=== PATIENT | female | born 1930 | race Caucasian/White ===

== ENCOUNTER 2016-06-20 18:06 | Emergency (ER) | payer OTHER ==
--- NOTE | 2016-06-20 18:35 | PROVIDER DOCUMENTATION ---
HPI-Female /OB/Breast - General Chief Complaint: UTI Symptoms Stated Complaint: FEMALE /WOUND RE-CHECK Time Seen by Provider: 06/20/16 18:29 Source: reports: patient, family Allergies/Adverse Reactions: Patient Allergies Allergy/AdvReac Type Severity Reaction Status Date / Time morphine Allergy NAUSEA/VOMI Verified 06/20/16 18:20 TING Home Medications: Home Medication List Medication Instructions Recorded Confirmed Last Taken Type Ciprofloxacin HCl [Cipro] 500 mg PO BID #14 tablet 06/20/16 Unknown Rx Metronidazole 500 mg PO BID #20 tablet 06/20/16 Unknown Rx - History of Present Illness-Female /OB Nature of Presenting Problem: 85 y/o WF presents to ED with c/o frequent urination, dark/malodorous urine, decreased urine x 2 days. Family states that pt has late stage dementia and has been urinating frequently, but has decreased over last 1-[address] Marti was supposed to perform a vaginal exam and catheterize her, but has not seen as outpatient to perform. Family states that they attempted to examine her urethra and noted that they couldn't see it; concerned that it may have "mucus plug" or closed up. Wants pt to be catheterized to go home. Pt is in diapers, but has not gone on her own x 3 weeks. Also states wound on LUE that they want checked; has been present for 2 weeks. Review of Systems - Adult - REVIEW OF SYSTEMS - ADULT ROS:: ROS per family Constitutional: reports: no symptoms reported. denies: chills, fever Eyes: reports: no symptoms reported Ears, Nose, Mouth & Throat: reports: no symptoms reported Cardiovascular: reports: no symptoms reported. denies: chest pain, palpitations Respiratory: reports: no symptoms reported. denies: cough, shortness of breath Gastrointestinal: reports: constipation (frequent impactions). denies: abdominal pain, diarrhea, nausea, vomiting Genitourinary: reports: see HPI. denies: discharge, frequent UTI's, hematuria Musculoskeletal: reports: no symptoms reported. denies: joint pain, joint swelling Integumentary: reports: no symptoms reported. denies: nail changes, rash Neurological: reports: see HPI, other. denies: numbness, paresthesia Psychiatric: reports: no symptoms reported Endocrine: reports: no symptoms reported. denies: cold intolerance, heat intolerance Hematologic/Lymphatic: reports: no symptoms reported. denies: easy bruising, prolonged bleeding Allergic/Immunologic: reports: no symptoms reported All Other Systems: Reviewed and Negative Past History - Adult - PAST MEDICAL HISTORY-ADULT Review of Records: reports: Nursing Assessment Review, Medications Reviewed Neurological: reports: dementia - PRIOR SURGERIES/PROCEDURES Surgical/Procedure History: reports: hysterectomy - SOCIAL HISTORY Smoking: denies Alcohol Use Frequency: never Living Situation: family Physical Exam-General - PHYSICAL EXAM-ADULT Initial Vital Signs Reviewed: Yes - CONSTITUTIONAL General Appearance: slow to respond - EYES Eyes: pink conjunctivae - HEAD, EARS, NOSE, MOUTH & THROAT HENMT: normocephalic/atraumatic - SKIN Integumentary: normal color, normal turgor, warm/dry, laceration(s) (healing lac approx. 2.5 cm to L wrist; no active bleeding or infection) - PSYCHIATRIC Psych/Mental Status: other Progress - PLAN OF CARE/RESULTS Progress/Plan/Lab Results: Laboratory Tests 06/20/16 20:40 Urine Source CATH Urine Color YELLOW Urine Clarity VERY CLOUDY A Urine pH 8.0 Ur Specific [place] 1.010 Urine Protein TRACE A Urine Ketones NEGATIVE Urine Blood 3+ A Urine Nitrite POSITIVE A Urine Bilirubin NEGATIVE Urine Urobilinogen NORMAL Urine Microscopic RBC 10-20 A Urine WBC 1+ A Urine Microscopic WBC 10-20 A Ur Epithelial Cells <10 Urine Bacteria 4+ Urine Glucose NEGATIVE Orders Category Date Time Status [place] [Home with Leg Bag] DIRECTED Care 06/20/16 18:56 Active FLAT/UPRIGHT ABD/1 VIEW CHEST [RAD] Stat Exams 06/20/16 18:[address] W/POSS RFLX CULT [URINALYSIS] Stat Lab 06/20/16 20:40 Completed URINE CULTURE [RM] Routine Lab 06/20/16 21:11 Results Ciprofloxacin [Cipro] Med 06/20/16 21:14 Discontinued 500 mg PO NOW ONE Metronidazole [Flagyl] Med 06/20/16 21:23 Discontinued 500 mg .ROUTE .STK-MED ONE Metronidazole [Flagyl] Med 06/20/16 21:14 Discontinued 500 mg PO NOW ONE Vital Signs Temp Pulse Resp BP Pulse Ox 06/20/16 21:29 79 18 113/70 97 06/20/16 18:15 97.8 F 86 18 125/75 98 morphine Allergy (Verified 06/20/16 18:20) NAUSEA/VOMITING Ciprofloxacin HCl [Cipro] 500 mg PO BID #14 tablet 06/20/16 Metronidazole 500 mg PO BID #20 tablet 06/20/16 I&O 06/20/16 06/21/16 06/22/16 06:59 06:59 06:59 Output Total 125 Balance -125 Laboratory 06/20/16 20:40 Urine Source CATH Urine Color YELLOW Urine Clarity VERY CLOUDY A Urine pH 8.0 Ur Specific [place] 1.010 Urine Protein TRACE A Urine Ketones NEGATIVE Urine Blood 3+ A Urine Nitrite POSITIVE A Urine Bilirubin NEGATIVE Urine Urobilinogen NORMAL Urine Microscopic RBC 10-20 A Urine WBC 1+ A Urine Microscopic WBC 10-20 A Ur Epithelial Cells <10 Urine Bacteria 4+ Urine Glucose NEGATIVE Dr. Marti at bedside and examined pt; emplaced catheter. Agreed with d/c plan and diagnosis. - XRAY 1 XRAY Study: Chest, Abdomen XRAY Interpretation: No impaction Departure - Departure Time of Disposition Order: 21:12 DIAGNOSIS: Vaginosis UTI (urinary tract infection) Qualifiers: Urinary tract infection type: acute cystitis Hematuria presence: without hematuria Qualified Code(s): N30.00 - Acute cystitis without hematuria Disposition: HOME 01 Certified Medical Emergency: Emergent Condition: Stable Additional Instructions: Take medications as directed. Follow up with PCP in 5-7 days for recheck, or with specialist for further management. ED Follow Up Instructions: You have been treated by a care provider in the Emergency Department. These instructions are being provided to you so you can have an understanding of how to care for yourself upon discharge. Upon discharge from the Emergency Department, you are responsible for making arrangements for follow-up care by a physician of your choice. Take all prescribed medications as directed. Return to the Emergency Department immediately for any new or worsening symptoms. You may call the Physician Referral phone number at [phone] to obtain a list of Physicians who are taking new patients. Prescriptions: Ciprofloxacin HCl [Cipro] 500 mg PO BID #14 tablet Metronidazole 500 mg PO BID #20 tablet Referrals: Rajiv Marti MD [Primary Care Provider] - Jim Pino DO [STAFF PHYSICIAN] - Instructions: Urinary Tract Infection, [id number], Bacterial Vaginosis, Easy- to-Read, Ciprofloxacin tablets, Metronidazole tablets or capsules Attestation - Physician/ LOY Attestation Patient care was provided by Advanced Practice Provider:: Yes Advanced Practice Provider:: Sunshine Blair Advanced Practice Provider documentation review:: The Mid-level provider documentation, treatment plan and medical decision making was reviewed by the physician who agrees with all treatment and medical decision making by the MLP. The physician spent face to face time with patient:: Yes
[2016-06-20 20:53] LABS: URINE SOURCE CATH
[2016-06-20 21:10] LABS: BILIRUBIN URINE NEGATIVE (NEGATIVE); BLOOD URINE 3+ (NEGATIVE); CLARITY VERY CLOUDY (CLEAR); COLOR YELLOW; GLUCOSE URINE NEGATIVE (NEGATIVE); LEUKOCYTES URINE 1+ (NEGATIVE); NITRITE URINE POSITIVE (NEGATIVE); PROTEIN URINE TRACE mg/dL (NEGATIVE); URINE CULTURE PL NEEDED? YES; URINE EPITHELIAL CELLS <10 /HPF (<10); UROBILINOGEN URINE NORMAL
[2016-06-20] MEDS ORDERED: CIPRO PO ONE (21:14)
[2016-06-20] MEDS ORDERED: FLAGYL PO ONE (21:14)
[2016-06-20] MEDS ORDERED: FLAGYL ONE (21:23)
[2016-06-20 21:30] VITALS: BP 113/70
--- NOTE | 2016-06-21 07:52 | Diag Imaging Result Document ---
PROCEDURE NAME: FLAT/UPRIGHT ABD/1 VIEW CHEST - 06/20/2016 FRONTAL CHEST X-RAY AND 2 VIEWS OF THE ABDOMEN: COMPARISON: None. FINDINGS: Lungs are hyperexpanded compatible with COPD. There is a densely calcified granuloma in the right mid lung. No infiltrates. Heart size is normal. There is mild constipation predominantly throughout the hepatic flexure and descending colon. No rectal impaction. No bowel obstruction or free air. There is significant scoliosis and degeneration throughout the thoracic spine. IMPRESSION: Moderate constipation.
== END 2016-06-20 21:29 | disposition home or self-care (01) ==
LOC: P.ED 18:06
DX: N30.00 Acute cystitis without hematuria (principal); N76.0 Acute vaginitis; R35.0 Frequency of micturition; K59.00 Constipation, unspecified; R53.83 Other fatigue; F03.90 Unspecified dementia, unspecified severity, without behavioral disturbance, psychotic disturbance, mood disturbance, and anxiety; S61.512D Laceration without foreign body of left wrist, subsequent encounter; W19.XXXD Unspecified fall, subsequent encounter
CPT/HCPCS: 74022; 81001; 87077; 87088; 99284